=== PATIENT | female | born 1980 | race Caucasian/White ===

== ENCOUNTER 2017-11-20 14:08 | Emergency (ER) | payer MEDICAID ==
[~2017-11-20] VITALS: Ht 167.6 cm; Wt 80.3 kg
[~2017-11-20 14:08] MED LIST: ARIP5TAB4 PO; BUPR300T54 PO; CEPH250T PO; CLIN-79 PO; CLIN-80 PO; GABA600T2 PO; IBUP-1986 PO; NO HOME MEDS; OLAN10TA3 PO; TRAM50TA2 PO
[2017-11-20 14:29] VITALS: BP 112/83
== END 2017-11-20 17:14 | disposition left against medical advice (07) ==
LOC: ER 14:09
DX: Z00.8 Encounter for other general examination (principal); Z53.21 Procedure and treatment not carried out due to patient leaving prior to being seen by health care provider

== ENCOUNTER 2018-02-17 10:03 | Emergency (ER) | payer MEDICAID ==
[~2018-02-17] VITALS: Ht 571.8 cm; Wt 161.0 kg
[~2018-02-17 10:03] MED LIST changes: -CLIN-79 PO; -CLIN-80 PO; +CLIN150C8 PO; +CLIN300C85 PO
[2018-02-17] MEDS ORDERED: fluconazole 150mg tablet PO ONE (11:05)
[2018-02-17] MEDS ORDERED: CLOT15CR5 TOP (11:09)
[2018-02-17] MEDS ORDERED: IBUP-1984 PO (11:11)
[2018-02-17] MEDS ORDERED: FLUC150T66 PO (11:11)
[2018-02-17 11:20] VITALS: BP 108/51
== END 2018-02-17 11:22 | disposition home or self-care (01) ==
LOC: ER 10:04
DX: B37.89 Other sites of candidiasis (principal); R21 Rash and other nonspecific skin eruption; J45.909 Unspecified asthma, uncomplicated; F12.10 Cannabis abuse, uncomplicated; F15.10 Other stimulant abuse, uncomplicated; G89.29 Other chronic pain; Z56.0 Unemployment, unspecified; Z88.0 Allergy status to penicillin; Z79.899 Other long term (current) drug therapy
CPT/HCPCS: 99283; A6449

== ENCOUNTER 2018-03-01 08:12 | Emergency (ER) | payer MEDICAID ==
[~2018-03-01] VITALS: Ht 165.1 cm; Wt 70.0 kg
[~2018-03-01 08:12] MED LIST changes: +CLOT15CR5 TOP; +FLUC150T66 PO
[2018-03-01 08:15] VITALS: BP 121/80
[2018-03-01] MEDS ORDERED: IBUP-1984 PO (08:43)
[2018-03-01] MEDS ORDERED: FLUC150T66 PO (08:43)
[2018-03-01] MEDS ORDERED: MYCOL30CR TP (08:43)
== END 2018-03-01 09:01 | disposition home or self-care (01) ==
LOC: ER 08:13
DX: R21 Rash and other nonspecific skin eruption (principal); J45.909 Unspecified asthma, uncomplicated; F12.10 Cannabis abuse, uncomplicated; F15.10 Other stimulant abuse, uncomplicated; Z88.0 Allergy status to penicillin
CPT/HCPCS: 99283

== ENCOUNTER 2018-03-04 11:25 | Emergency (ER) | payer MEDICAID ==
[~2018-03-04] VITALS: Ht 165.1 cm; Wt 72.7 kg
[~2018-03-04 11:25] MED LIST changes: +IBUP-1984 PO; +MYCOL30CR TP
[2018-03-04 11:44] VITALS: BP 122/76
[2018-03-04] MEDS ORDERED: TRIA15CR61 TOP (12:54)
[2018-03-04] MEDS ORDERED: PRED10TA23 PO (12:54)
== END 2018-03-04 13:01 | disposition home or self-care (01) ==
LOC: ER 11:26
DX: L23.9 Allergic contact dermatitis, unspecified cause (principal); J45.909 Unspecified asthma, uncomplicated; G89.29 Other chronic pain; M54.9 Dorsalgia, unspecified; F12.10 Cannabis abuse, uncomplicated; F15.10 Other stimulant abuse, uncomplicated; Z88.0 Allergy status to penicillin
CPT/HCPCS: 99284

== ENCOUNTER 2018-03-14 09:58 | Emergency (ER) | payer MEDICAID ==
[~2018-03-14] VITALS: Ht 167.6 cm; Wt 73.6 kg
[~2018-03-14 09:58] MED LIST changes: +FLUC200T PO; +PRED10TA23 PO; +TRIA15CR61 TOP
[2018-03-14 10:01] VITALS: BP 132/86
[2018-03-14] MEDS ORDERED: [UNRECOGNIZED DRUG - CODE] TOP (10:16)
[2018-03-15] MEDS ORDERED: CLOT15CR5 TOP (14:24)
== END 2018-03-14 10:24 | disposition home or self-care (01) ==
LOC: ER 09:59
DX: T50.905A Adverse effect of unspecified drugs, medicaments and biological substances, initial encounter (principal); R21 Rash and other nonspecific skin eruption; J45.909 Unspecified asthma, uncomplicated; G89.29 Other chronic pain; F12.90 Cannabis use, unspecified, uncomplicated; F15.90 Other stimulant use, unspecified, uncomplicated; Z88.0 Allergy status to penicillin; Z79.2 Long term (current) use of antibiotics; Z79.899 Other long term (current) drug therapy; Z60.2 Problems related to living alone; Z56.0 Unemployment, unspecified; Y92.89 Other specified places as the place of occurrence of the external cause
CPT/HCPCS: 99281

== ENCOUNTER 2018-03-15 13:50 | Emergency (ER) | payer MEDICAID ==
[~2018-03-15] VITALS: Ht 165.1 cm; Wt 73.6 kg
[~2018-03-15 13:50] MED LIST changes: +[UNRECOGNIZED DRUG - CODE] TOP
[2018-03-15 14:13] VITALS: BP 113/71
[2018-03-15] MEDS ORDERED: CLOT15CR5 TOP (14:24)
== END 2018-03-15 14:44 | disposition home or self-care (01) ==
LOC: ER 13:51
DX: B37.89 Other sites of candidiasis (principal); J45.909 Unspecified asthma, uncomplicated; G89.29 Other chronic pain; F12.90 Cannabis use, unspecified, uncomplicated; F15.90 Other stimulant use, unspecified, uncomplicated; Z56.0 Unemployment, unspecified; Z88.0 Allergy status to penicillin; Z59.0 Homelessness; Z79.899 Other long term (current) drug therapy
CPT/HCPCS: 99282

== ENCOUNTER 2018-03-24 11:29 | Emergency (ER) | payer MEDICAID ==
[~2018-03-24] VITALS: Ht 165.1 cm; Wt 72.7 kg
[2018-03-24 11:33] VITALS: BP 132/76
[2018-03-24] MEDS ORDERED: CLOT12CR TOP (12:12)
[2018-03-24] MEDS ORDERED: SULF1TAB49 PO (12:12)
== END 2018-03-24 12:30 | disposition home or self-care (01) ==
LOC: ER 11:30
DX: L02.416 Cutaneous abscess of left lower limb (principal); B35.3 Tinea pedis; L57.0 Actinic keratosis; J45.909 Unspecified asthma, uncomplicated; G89.29 Other chronic pain; M54.9 Dorsalgia, unspecified; F17.200 Nicotine dependence, unspecified, uncomplicated; F12.90 Cannabis use, unspecified, uncomplicated; F15.90 Other stimulant use, unspecified, uncomplicated; Z59.0 Homelessness; Z56.0 Unemployment, unspecified; Z88.0 Allergy status to penicillin
CPT/HCPCS: 99283

== ENCOUNTER 2018-06-08 12:04 | Emergency (ER) | payer MEDICAID ==
[~2018-06-08] VITALS: Ht 165.1 cm; Wt 65.9 kg
[~2018-06-08 12:04] MED LIST changes: +CLOT12CR TOP; -FLUC150T66 PO; -IBUP-1984 PO; -PRED10TA23 PO; -TRIA15CR61 TOP
[2018-06-08 12:13] VITALS: BP 114/76
[2018-06-08] MEDS ORDERED: ibuprofen tablet 400 MG TABLET PO ONE (13:15)
== END 2018-06-08 14:39 | disposition home or self-care (01) ==
LOC: ER 12:04
DX: M54.5 Low back pain (principal); M25.561 Pain in right knee; R51 Headache; J45.909 Unspecified asthma, uncomplicated; G89.29 Other chronic pain; F12.90 Cannabis use, unspecified, uncomplicated; F15.90 Other stimulant use, unspecified, uncomplicated; Z59.0 Homelessness; Z56.0 Unemployment, unspecified; Z88.2 Allergy status to sulfonamides; Z79.2 Long term (current) use of antibiotics; Z79.899 Other long term (current) drug therapy
CPT/HCPCS: 99282

== ENCOUNTER 2018-11-27 10:23 | Emergency (ER) | payer MEDICAID ==
[~2018-11-27] VITALS: Ht 165.1 cm; Wt 65.9 kg
[~2018-11-27 10:23] MED LIST changes: +CLIN-96 PO; -CLIN300C85 PO; +GABA600T13 PO; -GABA600T2 PO
[2018-11-27 10:33] VITALS: BP 123/86
[2018-11-27] MEDS ORDERED: NAPR-56 PO (11:28)
[2018-11-27] MEDS ORDERED: CLIN150C2 PO (11:28)
== END 2018-11-27 11:44 | disposition home or self-care (01) ==
LOC: ER 10:24
DX: K08.89 Other specified disorders of teeth and supporting structures (principal); J45.909 Unspecified asthma, uncomplicated; G89.29 Other chronic pain; F12.90 Cannabis use, unspecified, uncomplicated; F15.90 Other stimulant use, unspecified, uncomplicated; Z88.0 Allergy status to penicillin; Z79.899 Other long term (current) drug therapy; Z56.0 Unemployment, unspecified; Z59.0 Homelessness; Z60.2 Problems related to living alone
CPT/HCPCS: 99283

== ENCOUNTER 2022-07-23 07:02 | Emergency (ER) | payer MEDICAID ==
[~2022-07-23] VITALS: Ht 165.1 cm; Wt 97.0 kg
[~2022-07-23 07:02] MED LIST changes: +ARIP5TAB14 PO; -ARIP5TAB4 PO; -BUPR300T54 PO; +BUPR300T99 PO; -CLIN-96 PO; +CLIN-97 PO; +CLOT15CR35 TOP; -CLOT15CR5 TOP; -MYCOL30CR TP; +NYST30CR35 TP
[2022-07-23 07:06] VITALS: BP 120/74
[2022-07-23] MEDS ORDERED: ACET-1025 PO (07:54)
[2022-07-23] MEDS ORDERED: IBUP-1984 PO (07:54)
[2022-07-23] MEDS ORDERED: acetaminophen 325mg tablet PO ONE (07:55)
[2022-07-23] MEDS ORDERED: ibuprofen tablet 400 MG TABLET PO ONE (07:55)
== END 2022-07-23 08:32 | disposition home or self-care (01) ==
LOC: ER 07:03
DX: M79.675 Pain in left toe(s) (principal); J45.909 Unspecified asthma, uncomplicated; G89.29 Other chronic pain; M54.50 Low back pain, unspecified; F31.9 Bipolar disorder, unspecified; F12.90 Cannabis use, unspecified, uncomplicated; F15.20 Other stimulant dependence, uncomplicated; Z88.0 Allergy status to penicillin; Z59.00 Homelessness unspecified; Z56.0 Unemployment, unspecified
CPT/HCPCS: 73630; 99283

== ENCOUNTER 2024-07-26 11:10 | Emergency (ER) | payer MEDICAID ==
[~2024-07-26] VITALS: Ht 165.1 cm; Wt 93.2 kg
[~2024-07-26 11:10] MED LIST changes: +ARIP5TAB12 PO; -ARIP5TAB14 PO; +CLIN-214 PO; -CLIN150C8 PO; +GABA-1405 PO; -GABA600T13 PO
[2024-07-26 11:24] VITALS: BP 117/77; PULSE 94; TEMP 97.9; O2SAT 95
[2024-07-26] MEDS ORDERED: NAPR-996 PO (12:12)
[2024-07-26 12:27] VITALS: RESP 16
[2024-07-26] MEDS: ketorolac trometh 15mg/ml vial 15 MG/ML ML IM ONE (12:27)
== END 2024-07-26 12:35 | disposition home or self-care (01) ==
LOC: ER 11:11
DX: G89.29 Other chronic pain (principal); M54.59 Other low back pain; J45.909 Unspecified asthma, uncomplicated; F20.9 Schizophrenia, unspecified; F41.9 Anxiety disorder, unspecified; F31.9 Bipolar disorder, unspecified; F12.90 Cannabis use, unspecified, uncomplicated; F15.90 Other stimulant use, unspecified, uncomplicated; Z72.89 Other problems related to lifestyle; Z60.2 Problems related to living alone; Z59.00 Homelessness unspecified; Z56.0 Unemployment, unspecified; Z88.0 Allergy status to penicillin; Z79.899 Other long term (current) drug therapy
CPT/HCPCS: 96372; 99283; J1885

== ENCOUNTER 2025-06-02 15:03 | Emergency (ER) | payer MEDICAID ==
[~2025-06-02] VITALS: Ht 165.1 cm; Wt 83.8 kg
[~2025-06-02 15:03] MED LIST changes: +BUPR-551 PO; -BUPR300T99 PO; +CLIN-224 PO; -CLIN-97 PO; +NAPR-1168 PO; -NYST30CR35 TP; +NYST30CR46 TP
[2025-06-02 15:13] VITALS: BP 125/91; PULSE 87; TEMP 98.2; O2SAT 99
[2025-06-02] MEDS ORDERED: LIDO-52 TOP (16:20)
[2025-06-02] MEDS ORDERED: IBUP-1986 PO (16:20)
--- NOTE | 2025-06-02 16:20 | Physician Documentation ---
History of Present Illness ~ Chief Complaint: Shoulder pain Stated Complaint: L SHOULDER PAIN Time Seen by MD: 15:53 Primary Medical Doctor: CRISTAL HAHN This is a 44-year-old female who presents with one year of left shoulder pain, patient reports pain is worse with certain movements or lying on it, patient reports the pain became sharp and is causing a headache. Patient reports no other acute symptoms or concerns. Tetanus within 5 years?: No (UNKNOWN) Medication Reconciliation Allergies: Coded Allergies: Penicillins (Verified Allergy, Intermediate, 06/02/25) Scheduled Aripiprazole* (Abilify*), 1 TABLET PO DAILY Bupropion HCl (Bupropion Xl), 1 TABLET PO DAILY Cephalexin*Monohydrate* (Keflex*), 2 CAP PO BID Ceramides 1,3,6-11 (Cerave), 1 APPLIC TOP BID Clindamycin HCL* (Clindamycin HCL*), 1 CAP PO Q6H Clindamycin HCl (Clindamycin HCl CAPSULE), 3 CAP PO TID Clotrimazole (Clotrimazole), 1 APPLIC TOP Q8H Clotrimazole (Clotrimazole), 1 APPLIC TOP Q8H Clotrimazole (Lotrimin Af), 1 APPLIC TOP Q12H Fluconazole (Diflucan), 1 TAB PO DAILY Gabapentin (Gabapentin), 2 TABLET PO TID Ibuprofen (Ibuprofen), 1 TAB PO Q8H Ibuprofen (Ibuprofen), 1 TAB PO Q8H Lidocaine (Lidoderm), 1 PATCH TOP DAILY Naproxen (Naproxen), 1 TAB PO Q12H Nystatin/Triamcin Cream* (Mycolog Cream*), 1 APPLIC TP BID Nystatin/Triamcin Cream* (Mycolog Cream*), 1 APPLIC TP BID Olanzapine (Zyprexa), 1 TAB PO DAILY Tramadol Hcl (Tramadol Hcl), 50 MG PO Q6H PRN FOR PAIN Tramadol Hcl (Tramadol Hcl), 50-100 MG PO Q6H PRN FOR PAIN Miscellaneous Medications Home Med List (No Home Medications), (Reported) Past Medical History Past Medical History: Asthma, Chronic Back Pain, Extremity Fracture, Anxiety, Bipolar, Schizophrenia Past Surgical History: no surgical history Alcohol Use: Occasionally Drug Use: marijuana, methamphetamine Lives with: Alone Lives In: Homeless Occupation: unemployed Review of Systems ROS As stated above in the HPI, otherwise all systems are reviewed and negative. Physical Exam Vital Signs: Temperature: 98.2, Source: Temporal, Heart Rate: 87, Respiratory Rate: 18, BP: 125/91, Pulse Oximetry: 99, Weight: 83.800 Oxygen Flow Rate: 0 Physical Exam VITALS: Reviewed and as above. GENERAL: Alert, nontoxic appearing, no apparent distress. HEENT: PERRLA, EOMI RESPIRATORY: No increased work of breathing, no respiratory distress, speaking in full clear sentences CV: Brisk capillary refill to right fingers, left radial pulse intact MUSCULOSKELETAL: Left shoulder range of motion intact without significant pain, no deformity, nontender to palpation, no swelling to left shoulder as compared to right shoulder SKIN: No erythema or ecchymosis to left shoulder NEURO: Sensation intact to left hand Progress Results/Orders Results/Orders Completed Orders - JUANITA CELESTE ONLINE ADVERTISING ANALYST Ketorolac Trometh 15mg/Ml Vial (Toradol (06/02/25 16:15) Lidocaine 5% Patch (Lidoderm 5% Patch) (06/02/25 16:15) Vital Signs 06/02/25 06/02/25 15:13 16:25 Temp 98.2 Pulse 87 Resp 18 16 B/P (MAP) 125/91 Pulse Ox 99 O2 Flow Rate 0 Medical Decision Making Additional information obtaine: N/A Findings This 44-year-old female presented with a chronic pain to her left shoulder, patient reported no other acute symptoms or concerns and the limb is neurov ascularly intact, given no recent injuries patient will be medicated for pain. Can use to follow up with primary care provider for further management of chronic left shoulder pain. This is an otherwise well-appearing and physical exam benign. Patient discharged with prescription for NSAID and provided home care instructions return to care precautions, and follow up instructions which he verbalized understanding of. Differential Dx:Considerations: Include: AC separation, Adhesive capsulitis, arthritis, Bicipital tendonitis, Calcific tendonitis, Cervical disc disease, Contusion, Dislocation, Fracture: Humerus, Fracture: Scapula, Fracture: Clavicle, Gallbladder Disease, Hematoma, Impingement syndrome, Myocardial infarction, Neurovascular Injury, Rotator cuff injury, SC dislocation, Sprain, Subacromial bursitis Departure Time of Disposition: 16:19 Disposition: 01 HOME / SELF CARE / HOMELESS Impression: Primary Impression: Shoulder pain Qualified Codes: M25.512 - Pain in left shoulder; G89.29 - Other chronic pain Condition: Improved Discharge Instructions: Shoulder Pain Additional Instructions: Please use the prescribed ibuprofen as needed for pain, you may add [id number] nter ibuprofen as needed for pain as directed by [id number] packaging. You will need to follow up with your primary care provider for further management of your chronic shoulder pain. Please follow up with your primary care provider in the next few days. Please return to the emergency department for any new or worsening concerning symptoms. Referrals: NO PRIMARY CARE PROVIDER (PCP) Prescriptions Lidocaine (Lidoderm) 5 % Adh..patch 1 PATCH TOP DAILY for 10 Days, #10 PATCH 0 Refills may wear up to 12 hours Prov: JUANITA CELESTE 06/02/25 Ibuprofen (Ibuprofen) 800 Mg Tablet 1 TAB PO Q8H for pain for 10 Days, #30 TAB 0 Refills Prov: JUANITA CELESTE 06/02/25 Education Educated: Patient Educated regarding: diagnosis, treatment, prognosis, need for follow up Signature Scribe Signature: No scribe Attestation: The note accurately reflects work and decisions made by me.DM Contreras 06/03/25 12:14 JUANITA CEELSTE Jun 02, 2025 16:20
[2025-06-02 16:25] VITALS: RESP 16
[2025-06-02] MEDS: ketorolac trometh 15mg/ml vial 15 MG/ML ML IM ONE (16:25)
== END 2025-06-02 17:02 | disposition home or self-care (01) ==
LOC: ER 15:03
DX: G89.29 Other chronic pain (principal); M25.512 Pain in left shoulder; F31.9 Bipolar disorder, unspecified; F20.9 Schizophrenia, unspecified; F41.9 Anxiety disorder, unspecified; F12.90 Cannabis use, unspecified, uncomplicated; F15.90 Other stimulant use, unspecified, uncomplicated; Z88.0 Allergy status to penicillin; Z79.899 Other long term (current) drug therapy; Z59.00 Homelessness unspecified; Z56.0 Unemployment, unspecified
CPT/HCPCS: 96372; 99283; J1885